=== PATIENT | female | born 1965 | race Caucasian/White ===

== ENCOUNTER 2019-04-16 09:55 | Day surgery (SDC) | payer OTHER | END 2019-04-16 16:33 | disposition home or self-care (01) | LOC: GIL 09:55 | DX: Z12.11 Encounter for screening for malignant neoplasm of colon (principal); D12.5 Benign neoplasm of sigmoid colon; K64.8 Other hemorrhoids; I10 Essential (primary) hypertension | CPT/HCPCS: 45385; 88305 ==